=== PATIENT | male | born 1965 | race Caucasian/White ===

== ENCOUNTER 2019-09-21 03:32 | Observation (INO) | payer OTHER, SELFPAY ==
[2019-09-21] VITALS (28 sets, daily range): BP systolic 108–184; BP diastolic 53–103; PULSE 44–58; RESP 12–20; TEMP 36.6–36.7; O2SAT 92–99; BMI 27.6; BMI 26.9; BMI 26.8
--- NOTE | 2019-09-21 03:37 | ED.RN ---
CALLED FOR EKG PER RN REQUEST, PULLED OLD EKGS FOR
--- NOTE | 2019-09-21 03:52 | RAD_ITS ---
STUDY: X-RAY CHEST REASON FOR EXAM: Male, 54 years old. CP SINCE YESTERDAY TECHNIQUE: Single AP portable view of the chest. COMPARISON: None. FINDINGS: The lungs are clear and expanded. There is no demonstrated pleural abnormality. Normal size heart. Normal mediastinum and abelardo. Normal visualized pulmonary arteries. Normal visualized aortic arch and descending thoracic aorta. Normal visualized thoracic spine. There is degenerative osteoarthritis of the bilateral shoulders. There is no demonstrated abnormality of the visualized soft tissue structures of the upper abdomen. RAD/Chest 1 View (Portable) IMPRESSION: Degenerative changes, as described above. No demonstrated acute cardiopulmonary process. Electronically Signed: Callie Schneider, at 6:09 EDT Tel , Service support ,
--- NOTE | 2019-09-21 03:52 | EKG12_ITS ---
Test Reason : CP Blood Pressure : / mmHG Vent. Rate : 051 BPM Atrial Rate : 051 BPM P-R Int : 186 ms QRS Dur : 096 ms QT Int : 432 ms P-R-T Axes : 044 -29 050 degrees QTc Int : 398 ms Sinus bradycardia Otherwise normal ECG Confirmed by ELIEZER MELTON MD ([id number]), film and video editor ROMI JONAS ([id number]) on 09/21/2019 3:26:01 PM Referred By: ASHLYN Confirmed By:ELIEZER MELTON MD
--- NOTE | 2019-09-21 03:53 | ED.VISSUMM ---
- ER Visit Summary Date of Service: 09/21/19 Chief Complaint: Chest pain History of Present Illness: The patient is a 54 M who presents with chest pain that began yesterday afternoon. Patient dates that began after drinking coffee. Patient states he did have an episode where he felt pain in his left forearm. Patient describes his pain as a burning pain. Patient states it is over the substernal area. Patient states he took Tums and Pepto-Bismol at home with no improvement of his symptoms. Patient states he did take a sublingual nitroglycerin tablet which seemed to help somewhat. Patient denies any nausea or vomiting. Patient does admit to some palpitations. Patient states he does have a chronic cough but denies any fevers or chills. Patient denies any shortness of breath or diaphoresis. Patient does state that the pain is somewhat similar to the pain he had prior to his stents. Physical Examination: Vital signs are stable. Patient is afebrile. Patient is in no acute distress. Oral mucosa is pink and moist. Neck is supple. Trachea is midline. There is no JVD noted. Heart was regular rate and rhythm. Lungs are clear and equal bilaterally. Abdomen is soft. Bowel sounds are normal. There is no tenderness. There is no rebound or guarding noted. Skin is warm dry. Cranial nerves II through XII are intact. There are no focal motor or sensory deficits noted. Extremities are intact. There is no calf tenderness or edema. Test Results: EKG showed normal sinus rhythm with a rate of 51. There are no acute ST or T wave changes. This was unchanged compared to previous EKG dated 03/13/2013. CBC and basic metabolic profile were essentially within normal limits. Troponin was slightly elevated at 0.170. Portable chest x-ray was obtained. There is no acute cardiopulmonary process on my interpretation. Radiology interpretation is pending. Emergency Department Course and Treatment: Patient was given aspirin here. Patient was ordered sublingual nitroglycerin. Patient had no pain after 1 sublingual nitroglycerin. Patient is feeling better on reevaluation. Patient was advised of his lab results. I recommended admission to the hospital. Patient is agreeable with this. Case was discussed with the hospitalist. He will admit the patient for observation. Disposition: Admit to hospital Impression: 1. Chest pain 2. Elevated troponin This note was generated with [employer] dictation software. It may contain incorrect words, spelling, and punctuation that were not noted in review of the chart prior to signing ED Disposition - Plan for ED Patient: Disposition: Acute Care Hospital [facility] Diagnosis: Chest pain, Elevated troponin Referrals: Michael Elena [Primary Care Provider] -
[2019-09-21] MEDS: Aspirin 81 MG TAB.CHEW 324 MG PO (03:57)
[2019-09-21 03:59] LABS: Absolute Neutrophil Count 6.8 X10^3/uL (2.0-7.7); Basophil# 0.09 X10^3/uL; Basophil% 0.9 % (0-1); Eosinophil# 0.38 X10^3/uL; Hematocrit 48.4 % (40-54); Hemoglobin 16.4 g/dL (13.0-16.5); Lymphocyte % 15.8 % (19-41); Mean Corp Hgb Conc 33.9 g/dL (32-36); Mean Corpuscular Hgb 32.3 pg (27.0-32.0); Mean Corpuscular Volume 95.5 fL (80-94); Mean Platelet Vol. 9.2 fl (6.2-12.0); Monocyte# 0.71 X10^3/uL; Monocyte% 7.5 % (0-10); NRBC Flagged by Analyzer 0 % (0-5); Neutrophil # 6.79 X10^3/uL (2.7-7.7); Neutrophil % 71.6 % (47-70); Platelet Count 170 K/mm3 (150-450); RBC Distribution Width CV 13.2 % (11.6-14.6); RBC Distribution Width SD 46.5 fl (35.1-43.9); Red Blood Count 5.07 M/mm3 (4.6-6.2); White Blood Count 9.5 K/mm3 (4.4-11.0)
[2019-09-21] MEDS: Nitroglycerin SL (ED/IMG/CATH) 0.4 MG TABLET SUBLINGUAL (03:59)
[2019-09-21 04:11] LABS: Anion Gap 4 (5-15); BUN 23 mg/dL (7-18); Chloride 108 mmol/L (98-107); Creatinine, Serum 1.28 mg/dL (0.70-1.30); EST Glomerular Filtration Rate 62 mL/min (>60); Est Glom Filt Rate - Afr Amer 75 mL/min (>60); Estimated Creatinine Clearance 71.57 ml/min; Glucose 108 mg/dL (74-106); Potassium 4.1 mmol/L (3.5-5.1); Sodium Level 141 mmol/L (136-145)
--- NOTE | 2019-09-21 04:49 | PCM.HP.STD ---
Problem List (1) Chest pain Status: Acute (2) Elevated troponin Status: Acute History of Present Illness Date of Admission: 09/21/19 Chief Complaint: chest pain The patient is a 54 year old M with a significant history of hypertension; hyperlipidemia; tobacco abuse; CAD status post stents who present at the emergency department with a persistent substernal and epigastric pain that started a day before presentation and after he drank coffee. His pain is episodic. He thought that his pain was due to heartburn so he took Tums. However the Tums did not relieve his chest pain. He then took Pepto-Bismol which also did not relieve his chest pain. He rated his pain as severity 3-4 on a scale of 1-10. He took nitroglycerin that made his pain go away but then his pain came right back on. His pain is present at rest and with exertion. He denies any aggravating factors to the pain. Denies any associated nausea, vomiting, diaphoresis or shortness of breath. Also he has some pain to his left forearm. Reportedly he was stressed up about the pain so he called his who brought him to the emergency department. He had 2 coronary stents placed 10 to 11 years ago at [place]. Further he had additional 2 coronary stents placed 5 to [address] [facility]. 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 Reportedly about 5 months ago he had an unremarkable treadmill stress test at outside hospital. Past Medical History Medical History: Medical History (Last Reviewed 09/21/19 @ 06:[address] Celestino Valdes MD) CAD (coronary artery disease) I25.10 Hyperlipidemia E78.5 Hypertension I10 Allergies No Known Allergies Allergy (Verified 09/21/19 03:36) Home Medications: Ambulatory Orders Medication Instructions Recorded Metoprolol Succinate 25 mg PO DAILY 09/21/19 Rosuvastatin Calcium [Crestor] 20 mg PO DAILY 09/21/19 Surgical History: - - Coronary stent Lives: Spouse/ Significant Other Smoking Status: Current every day smoker Tobacco Use: Cigarettes - *Family History Maternal History Items: Dementia Paternal History Items: Heart Disease - His father had CABG as part of preparation for kidney transplant., Renal Disease - Polycystic kidney disease. Review of Systems Constitutional: Denies: Chills, Fever, Weight Change HEENT: Denies: Head Aches, Sinus Congestion, Sinus Drainage Cardiovascular: Reports: Chest Pain. Denies: Palpitations Respiratory: Denies: Cough, Shortness of breath at rest, Sputum production Gastrointestinal: Denies: Abdominal Pain, Nausea, Vomiting Genitourinary: Denies: Dysuria Musculoskeletal: Denies: Joint Pain, Joint Tenderness Skin: Denies: Rash, Wounds Neurological: Denies: Numbness, Tingling, Focal weakness Psychiatric: Denies: Anxiety, Depression, Homicidal Ideations, Suicidal Ideations Hematologic/ Lymphatic: Denies: Easy Bruising, Easy Bleeding VTE Information - Inpt Only VTE Present on Admission: No VTE Mechan Device Prophylaxis: SCD's VTE Pharm Prophylaxis ordered?: No Patient Problems: Active and Suspected Problems (Last Updated 09/21/19 @ 06:[address] Celestino Valdes MD) Chest pain (Acute) Elevated troponin (Acute) - Physical Exam Vitals/I&O's: Vital Signs Temp Pulse Resp BP Pulse Ox 98.0 F 52 L 15 143/77 H 97 09/21/19 03:33 09/21/19 04:06 09/21/19 04:06 09/21/19 04:06 09/21/19 04:06 Oxygen Flow Rate (L/min) 2 Oxygen Delivery Method Nasal Cannula Weight: 92.6 kg Body Mass Index (BMI) 27.6 General: Alert, Oriented x3, Cooperative HEENT: Atraumatic, PERRLA, EOMI, Normocephalic Neck: Supple, No JVD, Negative Carotid Bruits, Trachea Midline Lungs: Clear to auscultation, Normal air movement Cardiovascular: Normal S1, Normal S2, No murmurs, Bradycardic Abdomen: Bowel Sounds Present, Soft, Non Tender Extremities: No edema, Capillary Refill Less than 3 Seconds Skin: No rashes, No breakdown Musculoskeletal: No Tenderness to Palpation of Joints or Extremities Neurological: Cranial nerves II-XII grossly intact Psych/Mental Status: Normal Affect, Appropriate Laboratory Results 09/21/19 03:35: WBC 9.5, RBC 5.07, Hgb 16.4, Hct 48.4, MCV 95.5 H, MCH 32.3 H, MCHC 33.9, RDW Std Deviation 46.5 H, RDW Coeff of Quirino 13.2, Plt Count 170, MPV 9.2, Immature Gran % (Auto) 0.200, Neut % (Auto) 71.6 H, Lymph % (Auto) 15.8 L, [place] % (Auto) 7.5, Eos % (Auto) 4.0, Baso % (Auto) 0.9, Absolute Neuts (auto) 6.8, Absolute Lymphs (auto) 1.50, Nucleated RBC % 0 09/21/19 03:35: Sodium 141, Potassium 4.1, Chloride 108 H, Carbon Dioxide 29.0, Anion Gap 4 L, BUN 23 H, Creatinine 1.28, Estim Creat Clear Calc 71.57, Est GFR (MDRD) Af Amer 75, Est GFR (MDRD) Non-Af 62, BUN/Creatinine Ratio 18.0, Glucose 108 H, Calcium 10.0, Troponin I 0.170 H Current Medications Nitroglycerin (Nitrostat) 0.4 mg SUBLINGUAL Q5M PRN PRN Reason: Chest pain Last Admin: 09/21/19 03:59 Dose: 0.4 mg Documented by: Assessment/Plan All Active Problems (Last Updated 09/21/19 @ 06:[address] Celestino Valdes MD) Chest pain (Acute) Elevated troponin (Acute) The patient is a 54 year old M with a significant history of hypertension; hyperlipidemia; tobacco abuse CAD status post stents who presents emergency department with a persistent substernal and epigastric pain that started a day before presentation . Chest pain Heart score: 5 points, moderate score (moderately suspicious; normal EKG; age 45-64; >= 3risk factors or history of atherosclerotic disease; 1-3 times normal limit of troponin). Place on a monitored bed at PCU CXR independently reviewed confirms no acute cardiopulmonary process. EKG independently reviewed confirms sinus bradycardia with rate of 51 Troponin is in the indeterminate range. Trend troponin Obtain records from [facility]. Continue ASA 81 mg p.o. daily SL NTG 0.4 mg prn as needed for chest pain We will check lipid panel. Statin: Continue home Crestor. Check lipid panel Stat EKG as needed for chest pain About 5 months ago he had unremarkable treadmill stress test where he ran for about 13 minutes. Keep n.p.o. and consult cardiology. Sinus bradycardia Patient noted with heart rates in high 40s to low 50s. Asymptomatic. Continue metoprolol. Hypertension On presentation blood pressure was not within goal. Metoprolol continued. PRN hydralazine IV ordered. Trend blood pressures and adjust blood pressure medications. Hyperlipidemia Crestor continued Tobacco abuse Counseled. Declined nicotine patch. DVT prophylaxis SCD. No chemical chemoprophylaxis in the setting of work-up for chest pain OBSV E&M: 16802 Initial observation care L2
--- NOTE | 2019-09-21 05:55 | EKG12_ITS ---
Test Reason : CP ADMISSION Blood Pressure : / mmHG Vent. Rate : 046 BPM Atrial Rate : 046 BPM P-R Int : 190 ms QRS Dur : 096 ms QT Int : 432 ms P-R-T Axes : 047 -23 048 degrees QTc Int : 378 ms Sinus bradycardia Otherwise normal ECG Confirmed by ALFONZO OLIVER, ROSALIND ([id number]), publication editor COCO AGUIRRE ([id number]) on 09/23/2019 9:57:43 AM Referred By: DALE Confirmed By:ROSALIND MEJÍA MD
--- NOTE | 2019-09-21 06:53 | CON.PCM_ITS ---
Reason for Consult Date of Consultation: 09/21/19 Reason for Consultation: Epigastric burning and abnormal cardiac enzymes History of Present Illness: The patient is a 54 year old M with a previous cardiac history significant for hyperlipidemia, coronary artery disease status post multiple stents in the past previously being followed up at [facility]. He says that he has had a few days of epigastric discomfort which is slightly different from his usual heartburn. He did take some Pepto-Bismol with no relief and went to bed and woke up with the discomfort. He took a sublingual nitroglycerin and his discomfort had improved. He was very concerned about this and so he went to the emergency room an EKG was done which was noted to be normal but a cardiac enzyme profile was noted to be abnormal. He had a stress test at [place] approximately 5 to 6 months ago and was noted to be normal. [] Past Medical History Allergies/Adverse Reactions: Allergies No Known Allergies Allergy (Verified 09/21/19 03:36) Home Medications: Ambulatory Orders Medication Instructions Recorded Metoprolol Succinate 25 mg PO DAILY 09/21/19 Rosuvastatin Calcium [Crestor] 20 mg PO DAILY 09/21/19 Surgical History: - - Coronary stent - *Family History Maternal History Items: Dementia Paternal History Items: Heart Disease - His father had CABG as part of preparation for kidney transplant., Renal Disease - Polycystic kidney disease. Lives: Spouse/ Significant Other Smoking Status: Current every day smoker Tobacco Use: Cigarettes Alcohol: None Drugs: None Review of Systems - Review of Systems General: Denies: Fever, Night Sweats, Fatigue HEENT: Denies: Vision Change Cardiovascular: Reports: Chest Discomfort, Chest Pressure. Denies: Shortness of Breath, Orthopnea, PND, Peripheral Edema, Palpitations, Lightheadedness, Dizziness, Near Syncope, Syncope Respiratory: Denies: Cough, Sputum Production, Hemoptysis Gastrointestinal: Denies: Hematemesis, Hematochezia, Melena Genitourinary: Denies: Dysuria, Hematuria Skin: Denies: Rash Neurological: Denies: Dizziness Psychiatric: Denies: Anxiety Endocrine: Denies: Unexplained Weight Loss Hematologic/ Lymphatic: Denies: Anemia Subjectve: Pleasant gentleman in no distress Objective: Vital Signs Temp Pulse Resp BP Pulse Ox 97.8 F 47 L 16 154/90 H 99 09/21/19 05:48 09/21/19 05:48 09/21/19 05:48 09/21/19 05:48 09/21/19 05:48 Oxygen Flow Rate (L/min) 2 Oxygen Delivery Method Room Air Weight: 198 lb 6.656 oz Body Mass Index (BMI) 26.9 General: Awake, Alert, Oriented x 3 HEENT: PERRL, EOMI, Sclera Non Icteric Neck: Supple, Good ROM, No Lymph Node Enlargement Lungs: Clear to auscultation Cardiovascular: Regular Rhythm, Normal S1, Normal S2, No Murmurs, No Rubs, No Gallops Vascular: No Carotid Bruits, Normal Femoral Pulses, Normal Radial Pulses, Normal Dorsalis Pedal Pulse, Normal Posterior Tibial Pulses Abdomen: Bowel Sounds Present, Soft, Non Tender, No HSM, No Organomegaly Extremities: No Cyanosis, No Clubbing, No edema Musculoskeletal: No Erythema Skin: No Rashes Lymphatic: No Lymph Node Enlargement Neurological: No Focal Motor or Sensory Deficit Psych/Mental Status: Appropriate 09/21/19 03:35: WBC 9.5, RBC 5.07, Hgb 16.4, Hct 48.4, MCV 95.5 H, MCH 32.3 H, MCHC 33.9, Plt Count 170, MPV 9.2, Immature Gran % (Auto) 0.200, Neut % (Auto) 71.6 H, Lymph % (Auto) 15.8 L, [place] % (Auto) 7.5, Eos % (Auto) 4.0, Baso % (Auto) 0.9, Absolute Neuts (auto) 6.8, Nucleated RBC % 0 09/21/19 03:35: Sodium 141, Potassium 4.1, Chloride 108 H, Carbon Dioxide 29.0, Anion Gap 4 L, BUN 23 H, Creatinine 1.28, Est GFR (MDRD) Af Amer 75, Est GFR (MDRD) Non-Af 62, BUN/Creatinine Ratio 18.0, Glucose 108 H, Calcium 10.0, Troponin I 0.170 H Rhythm: EKG: Sinus bradycardia with no changes ECHO: Stress Test: Cardiac Cath: PCI: CT Surgery: Holter monitor: EPS: PPM: CXR: Chest CT Scan: Assessment/Plan 1. Epigastric burning consistent with unstable angina * Patient presents with epigastric burning at rest and abnormal cardiac enzymes. With his history of previous coronary stents as well as a recent normal stress test it would be prudent to pursue a cardiac catheterization to assess his coronary anatomy. 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 I did discuss this with him the risk benefits and alternatives he agrees to proceed with a cardiac catheterization. * Would continue aspirin * Will load with clopidogrel * Continue beta-maurizio * Further recommendations will depend on the results of the above test. * 2. Coronary artery disease * Patient has known coronary artery disease with previous stents. This will be evaluated with a cardiac catheterization. * 3. Hyperlipidemia * Patient apparently is on high intensity statin which will be continued. * * 4. Hypertension * His blood pressure is suboptimally controlled. I would recommend that in addition to the metoprolol we will add lisinopril 10 mg a day. * Thank you for allowing me to participate in the care of your patient. Please don't hesitate to call if any issues arise * * * Addendum: Cardiac catheterization today demonstrated the following: Normal left main coronary artery. Left anterior descending artery previously stented with patent stent. First diagonal vessel previously stented with patent stent. Left circumflex artery previously stented with subtotal occlusion and faint distal collaterals. Dominant right coronary artery with mild proximal disease, moderate mid segment disease, and a focal high-grade 95% stenosis noted in the distal vessel. Preserved ejection fraction. Based on the above angiographic findings the patient will be considered for angioplasty and stenting.
[2019-09-21 07:48] LABS: Cholesterol 131 mg/dL (200); High Density Lipoprotein 35 mg/dL; Triglycerides 64 mg/dL; Very Low Density Lipoprotein 13 mg/dL (5-40)
[2019-09-21] MEDS: Metoprolol(XL)Succ 25 MG Tablet PO (08:59)
[2019-09-21] MEDS: Lisinopril 10 MG Tablet PO (08:59)
[2019-09-21] MEDS: Clopidogrel Bisulfate 300 MG Tablet PO (08:59)
--- NOTE | 2019-09-21 09:54 | CASEMGMT ---
According to the [employer] website, the following are in-network tertiary facilities: [facility], [facility], [facility], [facility], [facility], [facility], [facility], [place], [facility], and . Felipa WEIR CM
--- NOTE | 2019-09-21 10:33 | CL.D_ITS ---
Patient Name: NIKKI VARGAS Study Date: 09/21/2019 Performing: Kian Trejo MD Ht: 72.04 inches 183 cm : 1965 Wt: 198.42 lbs 90 kg Age: 54 Gender: male BSA: 2.12 PROCEDURE(S) PERFORMED WE54-MMW/COR/LV CLINICAL PROFILE AND INDICATIONS Indications: ACS <= 24 hrs Heart Failure: None Stress/Imaging Stress/Image Study Performed: No CAD Presentations: Unstable angina. CONCLUSIONS Coronary artery disease with previously placed stent in the circumflex artery which is totally occlud ed. Previously placed stent in the left anterior descending artery and diagonal vessels are patent. The right coronary artery has moderate disease in the midsegment with a high-grade focal stenosis in the distal segment of 95%. Right to left collaterals feeding the distal circumflex artery is noted. Preserved ejection fraction. RECOMMENDATIONS Referred for immediate PCI DESCRIPTION OF PROCEDURE The patient arrived to the procedure lab. The risks and benefits of the procedure as well as a full d escription of our services here and current unavailability of surgical backup were fully explained to the patient and/or their significant other prior to the catheterization. The Timeout was completed, verifying the correct patient and procedure. The patient's procedural site was prepped and draped in the usual fashion. Local anesthetic was given subcutaneously to right groin region with Lidocaine 2%. Using a modified Seldinger technique, arterial access was obtained via the right femoral artery, a 5 Fr sheath was inserted. Left Coronary Artery selective angiography was performed in multiple views u sing a 5 Fr. JL4 catheter. Right Coronary Artery selective angiography was then performed in multiple views using a 5 Fr. 3DRC (Jorje) catheter. Left Ventriculography was performed in CASTELLANOS projection using a 5 Fr. Pigtail catheter. LV to AO pullback pressures were then recorded. CORONARY ANGIOGRAPHY DOMINANCE: Right Dominant LEFT HEART ASSESSMENT Left Ventricular Ejection Fraction: by LV Gram 60 % Normal LV wall motion Normal Left Ventricular systolic function LEFT MAIN: Angiographically normal LEFT ANTERIOR DESCENDING ARTERY: PROX LAD: Previously placed stent is patent DIAGONAL 1: Proximal - Previously placed stent is patent CIRCUMFLEX ARTERY: MID CIRC: Previously placed stent is occluded RIGHT CORONARY ARTERY: PROX RCA: Mild luminal irregularities MID RCA: Moderate luminal irregularities up to 50% DISTAL RCA: 95 % Stenosis COLLATERAL FLOW: Collateral flow from Left to Left Collateral flow from Right to Left COMPLICATIONS PROCEDURE MEDICATIONS Versed 1 mg IV Versed 1 mg IV Oxygen: 2 L/min via nasal cannula Heparin 6000 unit(s) IV 09/21/2019 10:20:41 Nitro 200 mcg IC 09/21/2019 10:22:26 IV Bolus: .9 NaCl ml total 09/21/2019 10:21:01 SUMMARY OF HEMODYNAMIC DATA Time AIR REST ECG 09:40:37 AO 153/79 (108) SA 10:07:46 LV 134/2, 8 10:13:50 LV 138/3, 7 10:13:57 LV 142/7, 12 10:14:35 LVp 142/7, 14 10:14:38 AOp 151/76 (105) 10:14:43 Signed By Kian Trejo MD On 09/21/2019 10:33:09 Kian Trejo MD
--- NOTE | 2019-09-21 11:01 | CL.I_ITS ---
Patient Name: NIKKI VARGAS Study Date: 09/21/2019 Performing: Abbe Hernandez MD Ht: 72 inches 183 cm : 1965 Wt: 198.7 lbs 90 kg Age: 54 Gender: male BSA: 2.12 PROCEDURE(S) PERFORMED [id number] W OR WO PTCA, SINGLE CORONARY ARTERY CLINICAL PROFILE AND CO-MORBIDITIES Indications: ACS <= 24 hrs, ACS > 24 hrs, Stable Known CAD Heart Failure: None Stress/Imaging Stress/Image Study Performed: No Stress/Image Study Performed: No CAD Presentations: Unstable angina. Unstable angina. Non-STEMI. Symptom onset Date/Time: 0 Time Not Available Comorbidities/Risk Factors: Current/Recent Smoker (< 1year) Hypertension Dyslipidemia Prior PCI CONCLUSIONS Successful PTCA/CHRISTOPHER distal RCA with a 3.0 x 38 Promus Synergy, post dilated with a 3.5 x 12 NC balloo n b/w 6-10 adolfo; 85%-->0%, no dissection. RECOMMENDATIONS Highly recommend quitting all tobacco products Follow up with primary university tutor Risk factor modification ASA Indefinitley Plavix for at least 12 months Routine post interventional care Refer for Outpatient Cardiac Rehab Manual sheath removal per protocol Follow up with Dr. Trejo Successful Mynx Control closure of RFA. DESCRIPTION OF PROCEDURE The patient arrived to the procedure lab. The risks and benefits of the procedure as well as a full d escription of our services here and current unavailability of surgical backup were fully explained to the patient and/or their significant other prior to the catheterization. The Timeout was completed, verifying the correct patient and procedure. The patient's procedural site was prepped and draped in the usual fashion. Local anesthetic was given subcutaneously to right groin region with Lidocaine 2% Using a modified Seldinger technique,arterial access was obtained via the right femoral artery, a 5Fr sheath was inserted. Left Coronary Artery selective angiography was performed in multiple views usin g a 5 Fr. JL4 catheter. Right Coronary Artery selective angiography was then performed in multiple vi ews using a 5 Fr. 3DRC (Jorje) catheter. Left Ventriculography was performed in CASTELLANOS projection usi ng a 5 Fr. Pigtail catheter. LV to AO pullback pressures were then recorded.The images were reviewed and options discussed. A decision was then made to proceed with an Intervention, IVUS o r other adjunct procedure. Arterial sheath was exchanged for a 6 Fr Sheath. HS II Guide catheter was inserted and engaged in to the RCA. BMW Guide wire was advanced to the RCA. Emerge 2.00x12 Balloon catheter was inserted. PTC A balloon inflated at 10 atms for 10 secs. PTCA balloon inflated at 12 atms for 13 secs. PTCA balloon inflated at 12 atms for 18 secs. Angiogram performed post balloon dilatation. Synergy 3.00x38 Drug E luting stent was inserted. Angiogram performed post stent deployment. NC Emerge 3.50x[address] Ball[address] was inserted. Angiogram performed post balloon dilatation. Contrast was injected through the naidu th and the Right Iliac and Femoral artery were assessed for possible closure device. The arterial sh eath was pulled and a Mynx closure device was deployed for hemostasis INTERVENTION INFORMATION LESION SITE: RCA (Distal) Lesion Complexity: High/C, lesion at bifurcation: No, thrombus present: No, lesion length: 38 mm, cul prit lesion: Yes Pre Stenosis: 85 % Pre intervention AMARILIS flow: 3 PROCEDURE: Drug Eluting Stent with pre and post dilatation Post Stenosis: 0 % Post intervention AMARILIS flow: 3 Lesion Devices: Jimenez .014 BMW [place] Straight 190cm Medtronic 6 Fr HSII 100cm Guide Catheter Juan Sci EMERGE MR 2.00x12 BALLOON Juan Sci Synergy MR CHRISTOPHER 3.00x38 Juan Sci NC EMERGE MR 3.50x12 BALLOON COMPLICATIONS No Complications PROCEDURE MEDICATIONS Versed 1 mg IV Versed 1 mg IV Oxygen: 2 L/min via nasal cannula Heparin 6000 unit(s) IV 09/21/2019 10:20:41 Nitro 200 mcg IC 09/21/2019 10:22:26 Nitro 200 mcg IC 09/21/2019 10:22:26 IV Bolus: .9 NaCl 500 ml total 09/21/2019 10:21:01 SUMMARY OF HEMODYNAMIC DATA Time AIR REST ECG 09:40:37 AO 153/79 (108) SA 10:07:46 LV 134/2, 8 10:13:50 LV 138/3, 7 10:13:57 LV 142/7, 12 10:14:35 LVp 142/7, 14 10:14:38 AOp 151/76 (105) 10:14:43 Signed By Abbe Hernandez MD On 09/21/2019 11:01:00 Abbe Hernandez MD
[2019-09-21 11:06] LABS: ACT Activated Clotting Time 213 sec (74-137)
--- NOTE | 2019-09-21 11:17 | PN_ITS ---
Patient Problems: Active and Suspected Problems (Last Reviewed 09/21/19 @ 06:[address] Celestino Valdes MD) Chest pain (Acute) Elevated troponin (Acute) Subjective: Patient seen and examined. He was admitted with a complaint of chest pain. He had cardiac cath on 09/21/2019 with showed occluded stent in the circumflex artery and RCA had moderate disease in the mid segment with high-grade focal stenosis in the distal segment of about 95%. He had successful stenting of the distal RCA. He was transferred to the ICU after cardiac cath for closer monitoring. Chest pain had resolved and he denied any nausea, vomiting or diarrhea no fever or chills or shortness of breath. Review of symptoms otherwise negative. Vitals/I&O's: Vital Signs Temp Pulse Resp BP Pulse Ox 97.8 F 47 L 16 154/90 H 99 09/21/19 05:48 09/21/19 08:59 09/21/19 05:48 09/21/19 08:59 09/21/19 05:48 Oxygen Flow Rate (L/min) 2 Oxygen Delivery Method Room Air Weight: 198 lb 6.656 oz Body Mass Index (BMI) 26.9 General: Alert, Oriented x3, Cooperative, No apparent distress HEENT: Atraumatic, PERRLA, EOMI, Normocephalic Oral: Moist Mucosa Neck: Supple, No JVD, Negative Carotid Bruits Lungs: Clear to auscultation, Normal air movement, No rhonchi, No wheeze, No rales Cardiovascular: Regular rate, Regular Rhythm, Normal S1, Normal S2, No murmurs Abdomen: Bowel Sounds Present, Soft, Non Tender, Non-Distended, No Hepato- splenomegaly Extremities: No clubbing, No cyanosis, No edema, Capillary Refill Less than 3 Seconds Skin: No rashes, No breakdown Musculoskeletal: No Tenderness to Palpation of Joints or Extremities Lymphatic: No Cervical, Supraclavicular, or Inguinal Adenopathy Neurological: Cranial nerves II-XII grossly intact, Neuro grossly intact, Motor Exam 5/5 strength throughout Psych/Mental Status: Normal Affect, Appropriate, Alert and oriented to time, place, person, mood and affect Laboratory Results 09/21/19 03:35: WBC 9.5, RBC 5.07, Hgb 16.4, Hct 48.4, MCV 95.5 H, MCH 32.3 H, MCHC 33.9, RDW Std Deviation 46.5 H, RDW Coeff of Quirino 13.2, Plt Count 170, MPV 9.2, Immature Gran % (Auto) 0.200, Neut % (Auto) 71.6 H, Lymph % (Auto) 15.8 L, [place] % (Auto) 7.5, Eos % (Auto) 4.0, Baso % (Auto) 0.9, Absolute Neuts (auto) 6.8, Absolute Lymphs (auto) 1.50, Nucleated RBC % 0 09/21/19 03:35: Sodium 141, Potassium 4.1, Chloride 108 H, Carbon Dioxide 29.0, Anion Gap 4 L, BUN 23 H, Creatinine 1.28, Estim Creat Clear Calc 71.57, Est GFR (MDRD) Af Amer 75, Est GFR (MDRD) Non-Af 62, BUN/Creatinine Ratio 18.0, Glucose 108 H, Calcium 10.0, Troponin I 0.170 H 09/21/19 07:10: Troponin I 0.471 H, Triglycerides 64, Cholesterol 131, LDL Cholesterol 83, VLDL Cholesterol 13, HDL Cholesterol 35 L 09/21/19 10:42: Activated Clotting Time 213 H Diagnostic Data Chest X-Ray 09/21/19 03:52 IMPRESSION: Degenerative changes, as described above. No demonstrated acute cardiopulmonary process. Electronically Signed: Callie Schneider, at 6:09 EDT Tel , Service support , Current Medications Acetaminophen (Tylenol) 650 mg PO Q6H PRN PRN PRN Reason: Pain Score 1-10/Temp > 100.7 F Atorvastatin Calcium (Lipitor) 40 mg PO DAILY@2200 AKASH Clopidogrel Bisulfate (Plavix) 75 mg PO DAILY [facility] Glucagon () 1 mg IM .X1 PRN PRN Reason: Hypoglycemia Hydralazine HCl (Apresoline Iv) 5 mg IV Q4H PRN PRN PRN Reason: SBP> 160 Dextrose (Dextrose 10%-Water) 250 mls @ 999 mls/hr IV .Q16M PRN; Protocol PRN Reason: HYPOGLYCEMIA Sodium Chloride () 1,000 mls @ 15 mls/hr IV .Q48H AKASH Lisinopril (Zestril) 10 mg PO DAILY [facility] Last Admin: 09/21/19 08:59 Dose: 10 mg Documented by: Melatonin (Melatonin) 3 mg PO QHS PRN PRN PRN Reason: INSOMNIA Metoprolol Succinate (Toprol Xl (Beta Dayday)) 25 mg PO DAILY [facility] Last Admin: 09/21/19 08:59 Dose: 25 mg Documented by: Nitroglycerin (Nitrostat) 0.4 mg SUBLINGUAL Q5M PRN PRN Reason: CARDIAC/CHEST PAIN Ondansetron HCl (Zofran) 4 mg IV Q8H PRN PRN PRN Reason: NAUSEA/VOMITING Senna/Docusate Sodium (Senokot-S, Amalia-Colace) 2 tablet PO BID PRN PRN PRN Reason: Constipation Sodium Chloride () 10 - 40 ml IV UD PRN PRN Reason: SALINE FLUSH STROKE Vital Signs/Narrative: Vital Signs Pulse BP 09/21/19 08:59 47 L 154/90 H Medical Necessity - Tobacco Use Smoking Status: Current every day smoker Tobacco Use: Cigarettes Assessment/Plan All Active Problems (Last Reviewed 09/21/19 @ 06:[address] Celestino Valdes MD) Chest pain (Acute) Elevated troponin (Acute) 1. Unstable angina s/p cardiac cath * Troponin was 0.17 on admission and trended up to 0.471. * had 95% occlusion of distal RCA and totally occluded stent in circumflex artery, which had right to left collaterals feeding the distal circumflex artery. * he had PTCA adn CHRISTOPHER placement in distal RCA * transferred to ICU for closer monitoring afterwards * on aspirin and plavix, as well as statin and metoprolol. * 2. SInus bradycardia * HR has been in the 50s, dipping down to 47 occasionally * on metoprolol 25mg daily. Patient is currently asymptomatic. Will consider adjusting metoprolol dose if bradycardia worsens. * 3. Hypertension: * Blood pressure 154/90. * On metoprolol. * Lisinopril 10 mg daily added on. * IV hydralazine PRN for blood pressure more than 160/110. * 4. Hyperlipidemia: On statin 8. Nicotine dependence: Patient counseled to quit. Prophylaxis: SCDs. OBSV E&M: 42563 Subsequent observation care L2
[2019-09-21] MEDS: 0.9% Normal Saline 1,000 ML 150 ML IV (11:20)
--- NOTE | 2019-09-21 11:23 | EKG12_ITS ---
Test Reason : POST STENT Blood Pressure : / mmHG Vent. Rate : 050 BPM Atrial Rate : 050 BPM P-R Int : 182 ms QRS Dur : 098 ms QT Int : 450 ms P-R-T Axes : 056 -30 043 degrees QTc Int : 410 ms Poor data quality, interpretation may be adversely affected Sinus bradycardia Left axis deviation Nonspecific T wave abnormality Abnormal ECG When compared with ECG of 21-SEP-2019 05:48, MANUAL COMPARISON REQUIRED, DATA IS UNCONFIRMED Confirmed by ROJAS MARTINI ([id number]), film editor URBAN CLAY ([id number]) on 09/24/2019 7:34:14 AM Referred By: Porsha MARTINI Confirmed By:ROJAS MARTINI
--- NOTE | 2019-09-21 13:37 | CRPHASE1 ---
Patient Communication PHII Cardiac Rehab Discussed with Patient:: Yes Guide to Cardiac Rehab Given to Patient:: Yes Cardiac Rehab Facility Choice List Given to Patient:: Yes - Pt chooses [facility] Choice Program [facility] CR PHII:: Communication Given to CR, Refer to [facility] Coin Machine Assembler:: Abbe Hernandez Phase II Cardiac Rehab:: Yes Sessions:: 36 sessions - 3 days/wk, 12 weeks Risk Factors/Lifestyle Hx Hypertension: Yes Hx Dyslipidemia: Yes Height: 6 ft Weight:: 89.811 kg BMI: 26.8 Laboratory Values: Cardiac Rehab Phase I Labs Triglycerides 64 mg/dL (-199) 09/21/19 07:10 Cholesterol 131 mg/dL (200) 09/21/19 07:10 LDL Cholesterol 83 mg/dL (0-130) 09/21/19 07:10 HDL Cholesterol 35 mg/dL (40-) L 09/21/19 07:10 Phase I Education Given On:: [place], Nutrition, Antiplatelet medication, CHF, Smoking cessation, Diabetes - Type I, Diabetes - Type II Knowledge of Condition:: Yes Hospital Course Cardiac Cath Date:: 09/21/19 Medical/Surgical History Hypertension:: Yes Dyslipidemia:: Yes Discharge/Home/Social Eval Discharge Disposition: Home Cardiac Rehabilitation Info Cardiac Rehabilitation Program Information: Cardiac Rehabilitation is important for patients like you who are recovering from a heart problem. Cardiac rehabilitation programs are recognized as integral to the continued care of the patient with coronary heart disease. The cardiac rehabilitation program is designed to optimize a patient's physical, psychological, and social functioning. Health rn critical care work in cardiac rehabilitation programs and assist you with getting the treatments you need to get stronger and healthier - like exercise, healthy eating habits, and medications. Cardiac rehabilitation has been show to help people with heart problems live longer and have better life enjoyment than people who do not go to cardiac rehabilitation. Please contact the Cardiac Rehabilitation Program at [facility] at in two weeks if you have not heard from them.
--- NOTE | 2019-09-21 13:41 | CRPH1.INSTRU ---
General Education CAD and cardiac anatomy and function:: Patient communicates acknowledgment Explanation of diagnoses and procedures:: Patient communicates acknowledgment Sign/Symptoms of NM:: Patient communicates acknowledgment Antiplatelet therapy: Patient communicates acknowledgment Proper use of NTG-SL: Not instructed Emergency procedures and activation of EMS: Patient communicates acknowledgment Compliance of all prescribed medications: Patient communicates acknowledgment Smoking Nicotine/Smoking Response Code:: Patient communicates acknowledgment Dyslipidemia Recommendations Include:: Therapeutic Lifestyle Change dietary guidelines Dyslipidemia Response Code:: Patient communicates acknowledgment Overweight/Obesity Patient Overweight/Obesity Risk Factors Are:: Overweight = 26-29 Recommendations Include:: Weight loss of 5-10%, Reduced calorie diet, Exercise 5-7 times/week Overweight/Obesity:: Patient communicates acknowledgment Hypertension Recommendations Include:: Maintain BP <130/85, BP <130/80 if diabetic, DASH dietary guidelines, Decrease/maintain normal body weight, Moderation of ETOH Hypertension:: Patient communicates acknowledgment Heart Disease Heart Disease Response Code:: Patient communicates acknowledgment Diabetes Diabetes:: Patient communicates acknowledgment Metabolic Syndrome Metabolic Syndrome Response Code:: Patient communicates acknowledgment Sedentary Sedentary Response Code:: Patient communicates acknowledgment Stress Stress Response Code:: Patient communicates acknowledgment
[2019-09-21] MEDS: Atorvastatin Calcium 40 MG Tablet PO (22:33)
[2019-09-22] VITALS (11 sets, daily range): BP systolic 106–132; BP diastolic 49–86; PULSE 42–52; RESP 12–16; TEMP 36.5–36.8; O2SAT 92–96
[2019-09-22 04:42] LABS: Absolute Lymphocyte Count 1.36 X10^3/uL (0.83-4.51); Absolute Neutrophil Count 6.1 X10^3/uL (2.0-7.7); Basophil# 0.07 X10^3/uL; Basophil% 0.8 % (0-1); Eosinophil# 0.33 X10^3/uL; Eosinophils% 3.9 % (0-5); Hematocrit 46.4 % (40-54); Hemoglobin 15.5 g/dL (13.0-16.5); Lymphocyte # 1.36 X10^3/ul (4.0); Lymphocyte % 15.9 % (19-41); Mean Corp Hgb Conc 33.4 g/dL (32-36); Mean Corpuscular Hgb 31.6 pg (27.0-32.0); Mean Corpuscular Volume 94.7 fL (80-94); Mean Platelet Vol. 8.9 fl (6.2-12.0); Monocyte# 0.66 X10^3/uL; Monocyte% 7.7 % (0-10); NRBC Flagged by Analyzer 0 % (0-5); Neutrophil % 71.6 % (47-70); Platelet Count 156 K/mm3 (150-450); RBC Distribution Width CV 13.6 % (11.6-14.6); RBC Distribution Width SD 47.7 fl (35.1-43.9); White Blood Count 8.5 K/mm3 (4.4-11.0)
[2019-09-22 04:56] LABS: Anion Gap 6 (5-15); BUN 20 mg/dL (7-18); BUN/Creat Ratio 17.5 RATIO (10-20); Calcium,Total 8.6 mg/dL (8.5-10.1); Chloride 112 mmol/L (98-107); Creatinine, Serum 1.14 mg/dL (0.70-1.30); EST Glomerular Filtration Rate 71 mL/min (>60); Est Glom Filt Rate - Afr Amer 86 mL/min (>60); Estimated Creatinine Clearance 80.36 ml/min; Glucose 101 mg/dL (74-106); Sodium Level 143 mmol/L (136-145)
--- NOTE | 2019-09-22 07:22 | PN.CARD_ITS ---
Subjectve: Patient seen and evaluated. Doing well. Had uneventful night. Objective: Vital Signs Temp Pulse Resp BP Pulse Ox 98.2 F 52 L 13 111/66 96 09/22/19 04:00 09/22/19 06:00 09/22/19 06:00 09/22/19 06:00 09/22/19 06:00 Oxygen Flow Rate (L/min) 2 Oxygen Delivery Method Room Air Weight: 198 lb Body Mass Index (BMI) 26.9 Intake and Output for Last 24 Hours 09/20/19 09/21/19 09/22/19 23:59 23:59 23:59 Intake Total 880 / 1360 960 / 960 Output Total 1250 / 1550 900 / 900 Balance -370 / -190 60 / 60 General: Awake, Alert, Oriented x 3 HEENT: PERRL, EOMI, Sclera Non Icteric Neck: Supple, Good ROM, No Lymph Node Enlargement Lungs: Clear to auscultation Cardiovascular: Regular Rhythm, Normal S1, Normal S2, No Murmurs, No Rubs, No Gallops Vascular: No Carotid Bruits, Normal Femoral Pulses, Normal Radial Pulses, Normal Dorsalis Pedal Pulse, Normal Posterior Tibial Pulses Abdomen: Bowel Sounds Present, Soft, Non Tender, No HSM, No Organomegaly Extremities: No Cyanosis, No Clubbing, No edema Musculoskeletal: No Erythema Skin: No Rashes Lymphatic: No Lymph Node Enlargement Neurological: No Focal Motor or Sensory Deficit Psych/Mental Status: Appropriate 09/21/19 07:10: Troponin I 0.471 H, Triglycerides 64, Cholesterol 131, LDL Cholesterol 83, VLDL Cholesterol 13, HDL Cholesterol 35 L 09/21/19 11:15: Troponin I 1.400 H* 09/22/19 04:30: WBC 8.5, RBC 4.90, Hgb 15.5, Hct 46.4, MCV 94.7 H, MCH 31.6, MCHC 33.4, Plt Count 156, MPV 8.9, Immature Gran % (Auto) 0.100, Neut % (Auto) 71.6 H, Lymph % (Auto) 15.9 L, [place] % (Auto) 7.7, Eos % (Auto) 3.9, Baso % (Auto) 0.8, Absolute Neuts (auto) 6.1, Nucleated RBC % 0 09/22/19 04:30: Sodium 143, Potassium 4.0, Chloride 112 H, Carbon Dioxide 25.0, Anion Gap 6, BUN 20 H, Creatinine 1.14, Est GFR (MDRD) Af Amer 86, Est GFR (MDRD) Non-Af 71, BUN/Creatinine Ratio 17.5, Glucose 101, Calcium 8.6 Rhythm: EKG: ECHO: Stress Test: Cardiac Cath: PCI: CT Surgery: Holter monitor: EPS: PPM: CXR: Chest CT Scan: Medical Necessity - Tobacco Use Smoking Status: Current every day smoker Tobacco Use: Cigarettes Assessment/Plan 1. Epigastric burning consistent with unstable angina * Patient presented with epigastric burning at rest and abnormal cardiac enzymes. * Patient underwent cardiac catheterization as noted in yesterday's note. He also underwent angioplasty and stenting of the right coronary artery. EKG this morning demonstrates no changes, femoral region is stable, hemoglobin and electrolytes are all stable. * Would continue aspirin * Will continue with clopidogrel * Continue beta-maurizio * Patient prefers to follow-up with his previous message broker developer Dr. Betancur at [facility] and will be discharged for follow-up. * 2. Coronary artery disease * Patient has known coronary artery disease with previous stents. This will be evaluated with a cardiac catheterization. * 3. Hyperlipidemia * Patient apparently is on high intensity statin which will be continued. * * 4. Hypertension * His blood pressure is suboptimally controlled. I would recommend that in addition to the metoprolol we will add lisinopril 10 mg a day. * Thank you for allowing me to participate in the care of your patient. Please don't hesitate to call if any issues arise * * * Patient can be discharged for outpatient follow-up
[2019-09-22] MEDS: Clopidogrel Bisulfate 75 MG Tablet PO (08:43)
[2019-09-22] MEDS: Aspirin E.C. 81 MG Tablet PO (08:43)
[2019-09-22] MEDS: Lisinopril 10 MG Tablet PO (08:43)
--- NOTE | 2019-09-22 09:45 | PCM.DC ---
- Discharge Diagnoses Current Active Problems: Current Active and Chronic Problems (Last Updated 09/21/19 @ 11:27 by Carlee Medrano) Arteriosclerotic cardiovascular disease (ASCVD) (Chronic) Successful PTCA/CHRISTOPHER distal RCA with a 3.0 x 38 Promus Synergy 09/21/2019 Stented coronary artery (Chronic 09/21/19) 09/21/2019:Successful PTCA/CHRISTOPHER distal RCA with a 3.0 x 38 Promus Synergy Chest pain (Acute) Elevated troponin (Acute) You will use the following diet at home:: Cardiac Your food should be the consistency of: Regular Your liquids should be the consistency of: Regular/Thin Discharge Activity: Return to Normal Activity Weight Bearing Status: Weight bearing as tolerated Call your doctor if you observe: Shortness of breath, Dizziness, Chest pain, Calf discomfort, Uncontrolled pain Instructions: What Is Angina?, Recognizing a Heart Attack or Angina, Warning Signs of a Heart Attack Allergies/Adverse Reactions: Allergies No Known Allergies Allergy (Verified 09/21/19 03:36) Medications to take at Discharge Aspirin E.C. [Ecotrin] 81 mg PO DAILY@0800 #30 tab 09/22/19 Atorvastatin Calcium [Lipitor] 40 mg PO DAILY@2200 #30 tab 09/22/19 Clopidogrel Bisulfate [Plavix] 75 mg PO DAILY #30 tab 09/22/19 Lisinopril [Zestril] 10 mg PO DAILY #30 tab 09/22/19 Metoprolol(XL)Succ [Toprol Xl (Beta Dayday)] 12.5 mg PO DAILY #30 tab 09/22/19 The following prescriptions were given: Aspirin E.C. [Ecotrin] 81 mg PO DAILY@0800 #30 tab Transmission Status: Received by [id number] Atorvastatin Calcium [Lipitor] 40 mg PO DAILY@2200 #30 tab Transmission Status: Received by [id number] Clopidogrel Bisulfate [Plavix] 75 mg PO DAILY #30 tab Transmission Status: Received by [id number] Metoprolol(XL)Succ [Toprol Xl (Beta Dayday)] 12.5 mg PO DAILY #30 tab Transmission Status: Pending to [id number] Lisinopril [Zestril] 10 mg PO DAILY #30 tab Transmission Status: Received by [id number] Orders to be completed after discharge: Phase II, Outpatient Cardiac Rehab Location: None Selected Primary Care Physician: Michael Elena [Primary Care Provider] - Please follow up with your Primary Care Physician in: one week Test Results: Test results from this visit will be discussed in further detail at your follow-up appointment, if applicable. Please Follow Up With: Kian Trejo MD When: 2-4 weeks Proposed Discharge Date: 09/22/19
--- NOTE | 2019-09-22 09:49 | PCM.DC.SUM ---
Discharge Date and Diagnosis Date of Admission: 09/21/19 Date of Discharge: 09/22/19 - Primary Discharge Diagnosis Active and Suspected Problems (Last Updated 09/21/19 @ 11:27 by Carlee Medrano) Chest pain (Acute) Elevated troponin (Acute) Unstable angina - Secondary Discharge Diagnosis Chronic Problems (Last Updated 09/21/19 @ 11:27 by Carlee Medrano) Arteriosclerotic cardiovascular disease (ASCVD) (Chronic) Successful PTCA/CHRISTOPHER distal RCA with a 3.0 x 38 Promus Synergy 09/21/2019 Stented coronary artery (Chronic 09/21/19) 09/21/2019:Successful PTCA/CHRISTOPHER distal RCA with a 3.0 x 38 Promus Synergy Hospital Course and Treatment Imaging Results: Diagnostic Data Chest X-Ray 09/21/19 03:52 IMPRESSION: Degenerative changes, as described above. No demonstrated acute cardiopulmonary process. Electronically Signed: Ledesma Wyatt, at 6:09 EDT Tel , Service support , cardiology- Dr Trejo Operations: None Procedures: Cardiac catheterization Summary of Care Provided: The patient is a 54 year old M with a past medical history as outlined. He was admitted through the ED on 09/21/2019 with a complaint of substernal and epigastric pain that started 1 day before presentation and started after he drank coffee. Pain was episodic and he initially attributed it to heartburn and took Tums. However Tums did not relieve the pain. He then took Pepto-Bismol which also did not work so he decided to come into the ED. Patient has had a total of 4 stents and had had 2 stents placed about 11 years ago in [place] and also had 2 stents placed about 6 years ago in [facility]. He had a normal stress test last summer. EKG done showed sinus bradycardia with heart rate of [address] changes. Initial troponin was 0.170 and subsequently trended up to 0.471. He was admitted and managed for unstable angina. Cardiology was consulted and decision was made to proceed to cardiac cath. Patient had cardiac cath on 09/21/2019 which showed patent stents in the left anterior descending artery and diagonal vessels and right coronary artery had moderate disease in the mid segment with high-grade focal stenosis of about 95% and there were right to left collaterals feeding the distal circumflex artery. He was therefore referred for angioplasty with successful drug-eluting stent placement in the distal RCA. Patient was placed on aspirin and Plavix. He had been on metoprolol but he was bradycardic while in the hospital with heart rate going down to the 40s. Metoprolol dose was therefore decreased to 12.5 mg daily from 25 mg daily. Patient was transferred to the ICU post-cath for closer monitoring. He remained stable and was discharged home on 09/22/2019. He was discharged home with a prescription for p.o. aspirin 81 mg daily, p.o. Plavix 75 mg daily p.o. metoprolol XL 12.5 mg daily and p.o. atorvastatin 40 mg daily as well as p.o. lisinopril 10 mg daily. He is to follow-up with his primary care doctor and cardiology within 1 to 2 weeks. Patient seen and examined prior to discharge. He felt well and had no complaints. Review of systems is otherwise negative. Labs and vitals reviewed. Home medications reviewed and reconciled. On examination Vital Signs Height 6 ft Weight: 198 lb Weight in Pounds 198.4 lbs BMI 26.8 Pulse Ox 96 Temperature 97.7 F Pulse Rate 46 Respiratory Rate 13 Blood Pressure [BP] 132/82 Blood Pressure 118/72 Blood Pressure Position [BP] Semi-Fowlers Blood Pressure Position Semi-Fowlers [] General: Alert, Oriented x3, Cooperative, No apparent distress HEENT: Atraumatic, PERRLA, EOMI, Normocephalic Oral: Moist Mucosa Neck: Supple, No JVD, Negative Carotid Bruits Lungs: Clear to auscultation, Normal air movement, No rhonchi, No wheeze, No rales Cardiovascular: Regular rate, Regular Rhythm, Normal S1, Normal S2, No murmurs Abdomen: Bowel Sounds Present, Soft, Non Tender, Non-Distended, No Hepato-splenomegaly Extremities: No clubbing, No cyanosis, No edema, Capillary Refill Less than 3 Seconds Skin: No rashes, No breakdown, cath site in right groin had intact dressing. Musculoskeletal: No Tenderness to Palpation of Joints or Extremities Lymphatic: No Cervical, Supraclavicular, or Inguinal Adenopathy Neurological: Cranial nerves II-XII grossly intact, Neuro grossly intact, Motor Exam 5/5 strength throughout Psych/Mental Status: Normal Affect, Appropriate, Alert and oriented to time, place, person, mood and affect Plan for discharge home as above. - Physical Exam Vitals/I&O's: Vital Signs Temp Pulse Resp BP Pulse Ox 97.7 F L 46 L 13 132/82 H 96 09/22/19 08:00 09/22/19 09:00 09/22/19 09:00 09/22/19 09:00 09/22/19 09:00 Oxygen Flow Rate (L/min) 2 Oxygen Delivery Method Room Air Weight: 198 lb Body Mass Index (BMI) 26.9 Intake and Output for Last 24 Hours 09/20/19 09/21/19 09/22/19 23:59 23:59 23:59 Intake Total 880 / 1360 960 / 960 Output Total 1250 / 1550 900 / 900 Balance -370 / -190 60 / 60 Laboratory Results 09/21/19 10:42: Activated Clotting Time 213 H 09/21/19 11:15: Troponin I 1.400 H* 09/22/19 04:30: WBC 8.5, RBC 4.90, Hgb 15.5, Hct 46.4, MCV 94.7 H, MCH 31.6, MCHC 33.4, RDW Std Deviation 47.7 H, RDW Coeff of Quirino 13.6, Plt Count 156, MPV 8.9, Immature Gran % (Auto) 0.100, Neut % (Auto) 71.6 H, Lymph % (Auto) 15.9 L, Mcmullen % (Auto) 7.7, Eos % (Auto) 3.9, Baso % (Auto) 0.8, Absolute Neuts (auto) 6.1, Absolute Lymphs (auto) 1.36, Nucleated RBC % 0 09/22/19 04:30: Sodium 143, Potassium 4.0, Chloride 112 H, Carbon Dioxide 25.0, Anion Gap 6, BUN 20 H, Creatinine 1.14, Estim Creat Clear Calc 80.36, Est GFR (MDRD) Af Amer 86, Est GFR (MDRD) Non-Af 71, BUN/Creatinine Ratio 17.5, Glucose 101, Calcium 8.6 Current Medications Acetaminophen (Tylenol) 650 mg PO Q6H PRN PRN PRN Reason: Pain Score 1-10/Temp > 100.7 F Aspirin (Ecotrin) 81 mg PO DAILY@0800 [facility] Last Admin: 09/22/19 08:43 Dose: 81 mg Documented by: Atorvastatin Calcium (Lipitor) 40 mg PO DAILY@2200 [facility] Last Admin: 09/21/19 22:33 Dose: 40 mg Documented by: Atropine Sulfate () 0.5 mg IV UD PRN PRN Reason: HR <50 bpm Clopidogrel Bisulfate (Plavix) 75 mg PO DAILY [facility] Last Admin: 09/22/19 08:43 Dose: 75 mg Documented by: Diazepam (Valium) 5 mg PO Q6H PRN PRN PRN Reason: BACK SPASMS/ANXIETY Glucagon () 1 mg IM .X1 PRN PRN Reason: Hypoglycemia Heparin Sodium (Beef Lung) (Heparin 500 Unit/5 Ml (100/Ml)) 500 unit IV UD PRN PRN Reason: HEPARIN FLUSH Hydralazine HCl (Apresoline Iv) 5 mg IV Q4H PRN PRN PRN Reason: SBP> 160 Dextrose (Dextrose 10%-Water) 250 mls @ 999 mls/hr IV .Q16M PRN; Protocol PRN Reason: HYPOGLYCEMIA Sodium Chloride () 1,000 mls @ 15 mls/hr IV .Q48H [facility] Last Admin: 09/21/19 11:26 Dose: Not Given Documented by: Labetalol HCl (Trandate) 5 mg IV X1 PRN PRN Reason: SBP > 160 when pulling sheath Lisinopril (Zestril) 10 mg PO DAILY [facility] Last Admin: 09/22/19 08:43 Dose: 10 mg Documented by: Melatonin (Melatonin) 3 mg PO QHS PRN PRN PRN Reason: INSOMNIA Metoclopramide HCl (Reglan) 5 mg IV Q6H PRN PRN PRN Reason: NAUSEA/VOMITING Morphine Sulfate () 2 - 4 mg IV Q4H PRN PRN PRN Reason: Pain Score 1-10/10 Morphine Sulfate () 2 - 4 mg IV Q4H PRN PRN PRN Reason: Pain Score 1-10/10 Nitroglycerin (Nitrostat) 0.4 mg SUBLINGUAL Q5M PRN PRN Reason: CARDIAC/CHEST PAIN Ondansetron HCl (Zofran) 4 mg IV Q8H PRN PRN PRN Reason: NAUSEA/VOMITING Senna/Docusate Sodium (Senokot-S, Amalia-Colace) 2 tablet PO BID PRN PRN PRN Reason: Constipation Sodium Chloride () 10 - 40 ml IV UD PRN PRN Reason: SALINE FLUSH Sodium Chloride () 500 ml IV BOLUS PRN PRN Reason: VASO-VAGAL PROTOCOL Discharge Diet: Low fat/ Low Cholesterol Discharge Activity: Return to Normal Activity Weight Bearing Status: Weight bearing as tolerated Call your doctor if you observe: Shortness of breath, Dizziness, Chest pain, Calf discomfort, Uncontrolled pain Home Medications: Medications to take at Discharge Aspirin E.C. [Ecotrin] 81 mg PO DAILY@0800 #30 tab 09/22/19 Atorvastatin Calcium [Lipitor] 40 mg PO DAILY@2200 #30 tab 09/22/19 Clopidogrel Bisulfate [Plavix] 75 mg PO DAILY #30 tab 09/22/19 Lisinopril [Zestril] 10 mg PO DAILY #30 tab 09/22/19 Metoprolol(XL)Succ [Toprol Xl (Beta Dayday)] 12.5 mg PO DAILY #30 tab 09/22/19 Following Prescrptions Were Given to Patient: Aspirin E.C. [Ecotrin] 81 mg PO DAILY@0800 #30 tab Transmission Status: Received by [facility]/pharmacy #[id number] Atorvastatin Calcium [Lipitor] 40 mg PO DAILY@2200 #30 tab Transmission Status: Received by [facility]pharmacy [id number] Clopidogrel Bisulfate [Plavix] 75 mg PO DAILY #30 tab Transmission Status: Received by [facility]pharmacy [id number] Metoprolol(XL)Succ [Toprol Xl (Beta Dayday)] 12.5 mg PO DAILY #30 tab Transmission Status: Received by [facility]acy [id number] Lisinopril [Zestril] 10 mg PO DAILY #30 tab Transmission Status: Received by [facility]pharmacy [id number] Other Amb Orders: Phase II, Outpatient Cardiac Rehab Location: None Selected Primary Care Physician: Michael Elena [Primary Care Provider] - Please follow up with your Primary Care Physician in: one week Please Follow Up With: Kian Trejo MD When: 2-4 weeks Patient Instructions: What Is Angina?, Recognizing a Heart Attack or Angina, Warning Signs of a Heart Attack Disposition: Home Minutes spent on discharge:: 40 Patient Condition:: Stable Medical Necessity - Tobacco Use Smoking Status: Current every day smoker Tobacco Use: Cigarettes Meaningful Use Info Meaningful Use Diagnoses (Choose all that apply): AMI - AMI/Post PCI/Angioplasty Aspirin given w/in 24hrs of arrival?: Yes ASA at discharge?: Yes Antiplatelet Therapy at Discharge:: Yes Statins at discharge?: Yes Puma/ARB at discharge?: Yes Beta Dayday at discharge?: Yes Done w/ Acute AR measure.: Yes Inpatient E&M: 22943 Disch Hosp
== END 2019-09-22 10:15 | disposition home or self-care (01) ==
LOC: ED 04:47 → PCU 05:44 → ICU 10:45
PROVIDERS: Admitting Provider Hospitalist; Emergency Provider Emergency Medicine; PCP Internal Medicine Cardiovascular Disease; Visit Provider Student in an Organized Health Care Education/Training Program
DX: R07.89 Other chest pain (principal); I10 Essential (primary) hypertension; E78.5 Hyperlipidemia, unspecified; R10.13 Epigastric pain; F17.210 Nicotine dependence, cigarettes, uncomplicated; R00.1 Bradycardia, unspecified; Z95.5 Presence of coronary angioplasty implant and graft; Z79.899 Other long term (current) drug therapy; I25.110 Atherosclerotic heart disease of native coronary artery with unstable angina pectoris
CPT/HCPCS: 36415; 71045; 80048; 80061; 84484; 85025; 85347; 92928; 93005; 93458; 96360; 96361; 99152; 99153; 99218; 99285; 99406; C1760; J7030; Q9967; A4216; C1725; C1769; C1874; C1887; C9600; G0378